=== PATIENT | male | born 1995 | race Caucasian/White ===

== ENCOUNTER 2018-01-19 13:27 | Emergency (ER) | payer OTHER ==
--- NOTE | 2018-01-19 14:06 | EDPHY ---
H & P Stated Complaint: L shoulder injury Time Seen by Provider: 01/19/18 14:06 HPI/ROS: CHIEF COMPLAINT: Left shoulder injury HISTORY OF PRESENT ILLNESS: The patient presents to the ED with complaints of left shoulder pain. The patient was skiing earlier today when he fell. He believes he dislocated his left shoulder and it reduced prior to arrival. The patient has a history of subluxation. The patient denies any acute numbness or weakness. The patient denies additional acute complaints. REVIEW OF SYSTEMS: A comprehensive 10 point review of systems is otherwise negative aside from elements mentioned in the history of present illness. Source: Patient Exam Limitations: No limitations - Personal History Current Tetanus Diphtheria and Acellular Pertussis (TDAP): Yes - Family History Significant Family History: No pertinent family hx - Social History Smoking Status: Never smoked - Physical Exam Exam: General Appearance: Alert, no distress Neck: Nontender, trachea midline Respiratory: No chest wall tender, no subcutaneous air, lungs clear bilaterally Cardiovascular: Regular rate and rhythm Abdomen: Abdomen is soft and nontender, pelvis stable Skin: No lacerations, No abrasion Back: No midline T/L/S pain Extremities: Mild tenderness to palpation over the left humeral head Neuro: Sensation intact to light touch throughout the left upper extremity Constitutional: Initial Vital Signs Temperature (C) 36.4 C 01/19/18 13:30 Heart Rate 88 01/19/18 13:30 Respiratory Rate 16 01/19/18 13:30 Blood Pressure 138/86 H 01/19/18 13:30 O2 Sat (%) 98 01/19/18 13:30 O2 Delivery Mode Room Air Allergies/Adverse Reactions: No Known Allergies Allergy (Unverified 01/19/18 13:32) Home Medications: Medication Instructions Recorded NK [No Known Home Meds] 01/19/18 Medical Decision Making - Diagnostics Imaging Results: Left clavicle x-ray: Images reviewed by myself, negative for fracture or dislocation. ED Course/Re-evaluation: The patient presents to the ED with left shoulder pain in the setting of a likely spontaneously reduced shoulder dislocation. There is no evidence of an obvious fracture noted on his x-ray today. The patient is neurologically intact. The patient will be placed in a sling. He is given the contact number of our on-call orthopedic surgeon for any persistent pain or swelling. He is advised to take ibuprofen as needed for pain. Ice and conservative measures have been recommended. Differential Diagnosis: Differential diagnosis considered includes fracture, sprain, dislocation Departure - Departure Disposition: Home, Routine, Self-Care Clinical Impression: Shoulder strain Qualifiers: Encounter type: initial encounter Laterality: left Qualified Code(s): S46.912A - Strain of unspecified muscle, fascia and tendon at shoulder and upper arm level, left arm, initial encounter Condition: Good Instructions: Musculoskeletal Pain (ED) Additional Instructions: 1. Sling as needed for comfort. 2. Take Ibuprofen or Motrin 600 mg by mouth three times a day. 3. Your x-ray demonstrates no evidence of an obvious fracture. 4. Please follow up with the orthopedic surgeon you have been referred to for any persistent pain, swelling, decreased range of motion or other concerns as this may be the sign of an injury not noted on the x-ray today. Referrals: Andrea Molina MD [Medical Doctor] - As per Instructions
[2018-01-19 14:47] VITALS: BP 131/95; PULSE 80; RESP 18; TEMP 98.2; O2SAT 96
== END 2018-01-19 14:49 | disposition home or self-care (01) ==
DX: S46.912A Strain of unspecified muscle, fascia and tendon at shoulder and upper arm level, left arm, initial encounter (principal); V00.321A Fall from snow-skis, initial encounter; Y99.8 Other external cause status; Y93.23 Activity, snow (alpine) (downhill) skiing, snowboarding, sledding, tobogganing and snow tubing
CPT/HCPCS: A4565